=== PATIENT | male | born 1990 | race Caucasian/White ===

== ENCOUNTER 2017-05-11 20:54 | Emergency (ER) | payer SELFPAY ==
--- NOTE | 2017-05-11 21:34 | RAD ---
Indication: Fifth digit injury. 4 views of the right fifth digit demonstrates no fracture. No other bone or joint abnormality is noted. IMPRESSION: No fracture of the right hand is noted.
--- NOTE | 2017-05-11 22:00 | ED ---
Upper Extremity Pain - HPI Summary HPI Summary: 27 male presents to ED with complaints of getting his right hand slammed in a car door, by accident, just [employer] while at work. Patient works for [employer]. States he is in minimal pain, worse with movement, better with rest. Admits to some swelling and bruising. Admits to a small cut on fifth digit DIP. States majority of his pain is in his right fifth digit. Denies any other injuries. CMS intact. No other complaints at this time. No PMHx. Has not taken any medications. Denies numbness/tingling. - History of Current Complaint Chief Complaint: EDExtremityUpper Stated Complaint: RIGHT PINKY INJURY Time Seen by Provider: 05/11/17 21:12 Hx Obtained From: Patient Onset/Duration: Started Hours Ago, Traumatic, Still Present Timing: Constant Severity Initially: Mild Severity Currently: Mild Pain Location: Finger - right fifth digit Character: Throbbing Aggravating Factor(s): Movement Alleviating Factor(s): Rest, Compression Associated Signs & Symptoms: Positive: Swelling, Bruising. Negative: Numbness/ Tingling Related History: Dominant Hand Right - Allergies/Home Medications Allergies/Adverse Reactions: Allergies Allergy/AdvReac Type Severity Reaction Status Date / Time No Known Allergies Allergy Verified 05/11/17 21:02 PMH/Surg Hx/FS Hx/Imm Hx Endocrine/Hematology History: Denies: Hx Diabetes Cardiovascular History: Denies: Hx Hypertension Respiratory History: Denies: Hx Asthma Infectious Disease History: Denies: Traveled Outside the [place] in Last 30 Days - Family History Known Family History: Positive: None - Social History Occupation: Employed Full-time Alcohol Use: Daily Alcohol Amount: 1 beer daily Substance Use Type: Reports: None Smoking Status (MU): Never Smoked Tobacco Review of Systems Constitutional: Negative Cardiovascular: Negative Respiratory: Negative Positive: Arthralgia, Myalgia - right fifth digit/hand Positive: Bruising, Other - small cut on fifth digit, right Neurological: Negative All Other Systems Reviewed And Are Negative: Yes Physical Exam Triage Information Reviewed: Yes Vital Signs On Initial Exam: Initial Vitals Temp Pulse Resp BP Pulse Ox 97.9 F 80 16 143/90 97 05/11/17 21:00 05/11/17 21:00 05/11/17 21:00 05/11/17 21:00 05/11/17 21:00 Vital Signs Reviewed: Yes Appearance: Positive: Well-Appearing, No Pain Distress, Well-Nourished Skin: Positive: Warm, Skin Color Reflects Adequate Perfusion, Dry, Other - some ecchymosis and oozing bleeding noted on right fifth digit. .25cm superficial, not deep cut on anterior distal phalanx fifth finger, right side. some edema also noted. Negative: Cold, Cyanosis @, Diaphoretic Head/Face: Positive: Normal Head/Face Inspection Eyes: Positive: Conjunctiva Clear ENT: Positive: Hearing grossly normal Neck: Positive: Supple Respiratory/Lung Sounds: Positive: Clear to Auscultation, Breath Sounds Present. Negative: Rales, Rhonchi, Wheezes Cardiovascular: Positive: Normal, RRR, Pulses are Symmetrical in both Upper and Lower Extremities - 2+ radial b/l. Negative: Murmur, Rub Musculoskeletal: Positive: Normal, Strength/ROM Intact - of entire right hand, some soreness, but able., Pain @ - tenderness on palpation of fifth DIP due to noteable contusion, small subungual hematoma of right fifth digit, not drainable at this time. <than half of nail., Edema Right - fifth DIP, slight, Other - rest of msk exam normal. no crepitus, step off, or obvious deformity noted.. Negative: Limited @, Interruption @ Neurological: Positive: Normal, Sensory/Motor Intact - sensation, CMS intact, Alert, Oriented to Person Place, Time, NV Bundle Intact Distally Psychiatric: Positive: Affect/Mood Appropriate Diagnostics - Vital Signs Vital Signs Temp Pulse Resp BP Pulse Ox 05/11/17 21:00 97.9 F 80 16 143/90 97 - Laboratory Lab Statement: Any lab studies that have been ordered have been reviewed, and results considered in the medical decision making process. - Radiology right hand Xray Interpretation: No Acute Changes - No fracture of the right hand is noted. Radiology Interpretation Completed By: Radiologist Course/Dx - Course Course Of Treatment: x-ray obtianed and negative. finger was cleaned and soaked , triple antibiotic applied and dressed, small very superficial cut no laceration requiring closure, bleeding controlled. No FB. subungual hematoma of right fifth digit did not require drainage at this time, < half of finger nail. RICE and NSAIDs. Keep cut clean and dry, apply triple antibiotic. Splint not required due to patient having FROM with minimal pain. Patient deferred splint and pain management. Aware of worsening signs and symptoms to watch out for. Follow up PCP. - Diagnoses Differential Diagnosis/HQI/PQRI: Positive: Hematoma, Strain, Sprain Provider Diagnoses: Contusion of hand, right, Subungual hematoma of digit of hand Discharge - Discharge Plan Condition: Stable Disposition: HOME Patient Education Materials: Hematoma (ED), Contusion in Adults (ED) Referrals: No Primary Care Phys,NOPCP [Primary Care Provider] - [facility] [place] [facility]FERR[facility] [Outside] Additional Instructions: Rest, elevate and ice finger. If blood under finger nail worsens or does not go away/causes pain please seek medical attention for possible draining. Ibuprofen for pain and inflammation. Follow up with PCP. Keep clean and dry, apply triple antibiotic ointment to cut.
[2017-05-11 23:02] VITALS: BP 144/84
== END 2017-05-11 22:35 | disposition home or self-care (01) ==
LOC: ED 20:54
DX: S60.221A Contusion of right hand, initial encounter (principal); S60.00XA Contusion of unspecified finger without damage to nail, initial encounter; W23.0XXA Caught, crushed, jammed, or pinched between moving objects, initial encounter; Y93.9 Activity, unspecified; Y92.9 Unspecified place or not applicable
CPT/HCPCS: 99282